=== PATIENT | male | born 1955 | race Hispanic/Latino ===

== ENCOUNTER 2023-07-10 02:34 | Emergency (ER) | payer OTHER, MEDICARE ==
[~2023-07-10] VITALS: Ht 170.2 cm; Wt 81.6 kg
[2023-07-10 03:13] LABS: BASOPHILS # (AUTO) 0.06 K/uL (0.00-0.20); BASOPHILS % (AUTO) 0.5 % (0.0-5.0); EOSINOPHILS # (AUTO) 0.34 K/uL (0.00-0.70); EOSINOPHILS % (AUTO) 2.6 % (0.0-8.0); HEMATOCRIT 42.3 % (42-54); IMMATURE GRANULOCYTE ABSOLUTE 0.09 K/uL (0-1); LYMPHOCYTES # (AUTO) 1.9 K/uL (1.0-4.8); LYMPHOCYTES % (AUTO) 14.2 % (21.0-51.0); MEAN CORPUSCULAR HEMOGLOBIN 29.7 pg (27.0-33.0); MEAN CORPUSCULAR HGB CONC 34.5 g/dL (32.0-36.0); MEAN CORPUSCULAR VOLUME 86.2 fL (79-99); MONOCYTES # (AUTO) 1.2 K/uL (0.1-1.0); MONOCYTES % (AUTO) 9.2 % (3.0-13.0); NEUTROPHILS # (AUTO) 9.6 K/uL (1.8-7.7); NEUTROPHILS % (AUTO) 72.8 % (40.0-77.0); PLATELET COUNT (AUTO) 339 K/uL (130-400); RED BLOOD CELL COUNT(AUTO) 4.91 MIL/uL (4.50-6.20); RED CELL DISTRIBUTION WIDTH 13.1 % (11.0-15.5); WHITE BLOOD COUNT (AUTO) 13.2 K/uL (4.8-10.8)
[2023-07-10 03:19] LABS: RAPID GROUP A STREP negative (NEGATIVE)
[2023-07-10 03:21] LABS: CREATININE 1.8 mg/dL (0.5-1.5); POTASSIUM 4.2 mmol/L (3.5-5.1)
[2023-07-10 03:24] LABS: INR < 0.93 (0.85-1.15); PROTHROMBIN TIME 10.3 SEC (9.6-11.6)
[2023-07-10 03:25] LABS: PARTIAL THROMBOPLASTIN TIME 28.5 SEC (26.3-35.5)
[2023-07-10 03:26] LABS: SARS-CoV-2, RNA, NAAT POSITIVE SARS CoV-2 (NEGATIVE)
[2023-07-10 03:27] LABS: ALBUMIN 3.4 g/dL (3.5-5.0); BILIRUBIN,TOTAL 0.3 mg/dL (0.2-1.0); MAGNESIUM 2.4 mg/dL (1.80-2.40); TOTAL PROTEIN, SERUM 7.7 g/dL (6.0-8.3)
[2023-07-10] MEDS ORDERED: HYDROMORPHONE 1 MG INJ IVP ONE (03:30)
[2023-07-10] MEDS ORDERED: ONDANSETRON 4MG INJ IVP ONE (03:30)
[2023-07-10] MEDS ORDERED: 0.9%NACL 1000ML 2,000 ML IV ONE (03:30)
[2023-07-10] MEDS ORDERED: IOHEXOL-350 75 ML VIAL IV ONE (03:31)
[2023-07-10 03:34] LABS: INFLUENZA TYPE A Negative For Type A (NEGATIVE); INFLUENZA TYPE B Negative For Type B (NEGATIVE)
[2023-07-10 05:44] VITALS: BP 135/74; PULSE 89; RESP 18; O2SAT 99
[2023-07-10] MEDS ORDERED: PRED20TA3 PO (05:53)
[2023-07-10] MEDS ORDERED: IBUP-1493 PO (05:53)
[2023-07-10] MEDS ORDERED: TAMS-1 PO (05:53)
== END 2023-07-10 06:31 | disposition home or self-care (01) ==
LOC: EDH 02:34
DX: U07.1 COVID-19 (principal); R10.32 Left lower quadrant pain; N40.0 Benign prostatic hyperplasia without lower urinary tract symptoms
CPT/HCPCS: 99285; 74177; 96374; 71045; 87635; 96361; 96375; 82550; 83615; 83735; 84484; 80053; 83690; 85025; 85610; 85730; 87880; 87804 ×2; 36415; 93005; C9803; J1170; J7030; J2405; Q9967